=== PATIENT | male | born 1995 ===

== ENCOUNTER → 2017-09-21 13:40 | Outpatient (CLI) | payer OTHER ==
[~2017-09-21] VITALS: Ht 152.4 cm; Wt 64.9 kg
[~2017-09-21 13:40] MED LIST: CLARITIN10 M1
== END | disposition home or self-care (01) ==
LOC: PPHC 13:40
DX: Z02.79 Encounter for issue of other medical certificate (principal)

== ENCOUNTER → 2017-11-08 | Outpatient (CLI) | payer OTHER ==
[~2017-11-08] VITALS: Ht 152.4 cm; Wt 64.9 kg
== END | disposition home or self-care (01) ==
LOC: PPHC 16:29
DX: Z11.3 Encounter for screening for infections with a predominantly sexual mode of transmission (principal)